=== PATIENT | male | born 1970 | race Caucasian/White ===

== ENCOUNTER 2022-07-06 06:05 | Day surgery (SDC) | payer BC, OTHER ==
[2022-06-30 16:31] VITALS: BMI 30.7
[2022-07-06] MEDS ORDERED: ONDANSETRON 4 MG/2 ML VIAL ONE ×2 (06:47→08:54)
[2022-07-06] MEDS ORDERED: SUCCINYLCHOLINE CHLORIDE 200 MG/10 ML SYRINGE ONE (06:47)
[2022-07-06] MEDS ORDERED: PROPOFOL 20 ML ONE ×3 (06:47→08:34)
[2022-07-06] MEDS ORDERED: DEXAMETHASONE SOD PHOSPHATE 4 MG/1 ML VIAL ONE ×2 (06:47→08:54)
[2022-07-06 06:48] VITALS: TEMP 97
[2022-07-06] MEDS ORDERED: MIDAZOLAM HCL 2 MG/2 ML SINGLE DOSE VIAL ONE (06:48)
[2022-07-06] MEDS ORDERED: ceFAZolin SODIUM 1 GM VIAL ONE (06:48)
[2022-07-06] MEDS ORDERED: BUPIVACAINE HCL/EPINEPHRINE/PF 30 ML VIAL IJ ONE (07:12)
[2022-07-06] MEDS ORDERED: ROPIVACAINE HCL 0.5% 30ML VIAL ONE (07:25)
[2022-07-06] MEDS ORDERED: SEVOFLURANE 250 ML BTL ONE (08:50)
[2022-07-06] MEDS ORDERED: ACETAMINOPHEN 500 MG TABLET (FP) PO ONE (09:37)
[2022-07-06] MEDS ORDERED: ACETAMINOPHEN 500 MG TABLET (FP) ONE (10:05)
[2022-07-06 11:54] VITALS: BP 110/62; PULSE 64; RESP 15
[2022-07-06] MEDS ORDERED: ONDANSETRON 4 MG/2 ML VIAL IVPUSH PRN (12:39)
[2022-07-06] MEDS ORDERED: oxyCODONE HCL 5 MG TABLET PO PRN ×2 (12:39)
[2022-07-06] MEDS ORDERED: LACTATED RINGERS SOLUTION 1,000 ML IV SCH (12:45)
== END 2022-07-06 10:15 | disposition home or self-care (01) ==
LOC: FASU 06:05
PROVIDERS: ATTEND Orthopaedic Surgery
PROC: 0RNJ4ZZ Release Right Shoulder Joint, Percutaneous Endoscopic Approach (ICD-10-PCS; principal; 2022-07-06 08:09)
DX: M75.101 Unspecified rotator cuff tear or rupture of right shoulder, not specified as traumatic (principal); M75.51 Bursitis of right shoulder; M66.811 Spontaneous rupture of other tendons, right shoulder
CPT/HCPCS: C1713